=== PATIENT | male | born 2000 | race Caucasian/White ===

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

== ENCOUNTER 2020-07-07 03:22 | Emergency (ER) | payer MEDICAID ==
[2020-07-07 03:39] VITALS: PULSE 124
[2020-07-07] MEDS: Lidocaine 2% with EPINEPHrine 1:100,000 20 ML MDV INJECT ONE (04:21)
[2020-07-07] MEDS: Lidocaine 2% with EPINEPHrine 1:100,000 20 ML MDV ONE (04:32)
[2020-07-07] MEDS: Bacitracin Oint 1 GM U/D Packet TOP ONE (04:32)
[2020-07-07] MEDS: Bacitracin Oint 1 GM U/D Packet ONE (04:34)
[2020-07-07] MEDS: Diphtheria,Pertussis(Acell),Tetanus Vaccine 0.5 ML Syringe IM ONE (04:37)
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
[2020-07-07 05:21] VITALS: BP 132/60
== END 2020-07-07 05:00 | disposition home or self-care (01) ==
LOC: LL.ED 03:22
DX: S81.032A Puncture wound without foreign body, left knee, initial encounter (principal); S81.031A Puncture wound without foreign body, right knee, initial encounter; W33.01XA Accidental discharge of shotgun, initial encounter
CPT/HCPCS: 73590-50; 73590-LT; 73590-RT; 99283; 99284-25